=== PATIENT | female | born 1970 | race Caucasian/White ===

== ENCOUNTER 2017-03-04 17:36 | Emergency (ER) | payer MEDICAID, OTHER ==
[~2017-03-04] VITALS: Wt 75.3 kg
[2017-03-04] MEDS ORDERED: ONDANSETRON (ODT) 4 MG TAB ODT STA (19:48)
[2017-03-04] MEDS ORDERED: CLIN-73 PO (19:50)
[2017-03-04] MEDS ORDERED: IBUP-1542 PO (19:50)
[2017-03-04] MEDS ORDERED: HYDROCODONE/APAP (5/325) TAB PO ONE (20:00)
[2017-03-04] MEDS ORDERED: CLINDAMYCIN 300 MG CAP PO ONE (20:00)
[2017-03-04 20:11] VITALS: BP 166/94; PULSE 100; RESP 20; TEMP 99.5
--- NOTE | 2017-03-06 22:46 | ERD ---
ER Documentation Chief Complaint Chief Complaint RIGHT HAND SWELLING/REDNESS X3 DAYS, NO INJURY HPI The patient is a 46-year-old female, presenting to the ER because of acute right hand redness and swelling for the last 2-3 days, denies any trauma, denies fever, chills, neck pain, chest pain, dyspnea. She does not smoke nor drink Medical history: Hypertension Surgical history: None ROS All systems reviewed and are negative except as per history of present illness. Medications Home Meds Active Scripts Ibuprofen* (Motrin*) 600 Mg Tab, 600 MG PO Q6, #30 TAB Prov:GARTH ABBOTT MD 03/04/17 Clindamycin Hcl* (Clindamycin Hcl*) 300 Mg Capsule, 300 MG PO QID for 10 Days, CAP Prov:GARTH ABBOTT MD 03/04/17 Allergies Allergies: Coded Allergies: No Known Allergies (Verified Allergy, Unknown, 07/15/06) PMhx/Soc History of Surgery: No Hx Respiratory Disorders: Yes (asthma) Hx Miscellaneous Medical Probl: Yes (dm2) Hx Alcohol Use: No Hx Substance Use: No Hx Tobacco Use: No Smoking Status: Never smoker Physical Exam Vitals Vital Signs Date Time Temp Pulse Resp B/P Pulse Ox O2 Delivery O2 Flow Rate FiO2 03/04/17 20:11 99.5 100 20 166/94 100 Room Air 03/04/17 17:38 98.2 106 18 173/101 97 Physical Exam Const: No acute distress. Head: Atraumatic. Eyes: Normal Conjunctiva. ENT: Normal External Ears, Nose and Mouth. Neck: Full range of motion. No meningismus. Resp: Clear to auscultation bilaterally. Cardio: Regular rate and rhythm. Abd: Soft, non distended, normal bowel sounds, non tender. Skin: No petechiae or rashes. Back: No midline or flank tenderness. Ext: Rt hand is minimally edematous and erythematous dorsally, no vesicle, no petechia, no pustule Neur: Awake and alert. No focal deficit Psych: Normal Mood and Affect. Results 24 hrs Current Medications Medications (Trade) Dose Ordered Sig/Cipriano Route PRN Reason Start Time Stop Time Status Last Admin Dose Admin Clindamycin HCl (Cleocin) 300 mg ONCE ONCE PO 03/04/17 20:00 03/04/17 20:01 DC 03/04/17 20:04 Acetaminophen/ Hydrocodone Bitart (Ambridge (5/325)) 1 tab ONCE ONCE PO 03/04/17 20:00 03/04/17 20:01 DC 03/04/17 19:56 Ondansetron HCl (Zofran Odt) 4 mg ONCE STAT ODT 03/04/17 19:48 03/04/17 19:50 DC 03/04/17 19:56 Procedures/MDM MDM: The patient is a 46-year-old female, presenting with acute right hand cellulitis. She was treated with clindamycin 300 mg po, is stable for outpatient follow-up The differential diagnoses considered include but are not limited to DVT, lymphedema, local allergic reaction Departure Diagnosis: Primary Impression: Cellulitis of hand, right Condition: Good Patient Instructions: Cellulitis Referrals: [facility] YOU HAVE RECEIVED A MEDICAL SCREENING EXAM AND THE RESULTS INDICATE THAT YOU DO NOT HAVE A CONDITION THAT REQUIRES URGENT TREATMENT IN THE EMERGENCY DEPARTMENT. FURTHER EVALUATION AND TREATMENT OF YOUR CONDITION CAN WAIT UNTIL YOU ARE SEEN IN YOUR DOCTORS OFFICE WITHIN THE NEXT 1-2 DAYS. IT IS YOUR RESPONSIBILITY TO MAKE AN APPOINTMENT FOR [facility] CARE. IF YOU HAVE A PRIMARY DOCTOR --you should call your primary doctor and schedule an appointment IF YOU DO NOT HAVE A PRIMARY DOCTOR YOU CAN CALL OUR PHYSICIAN REFERRAL HOTLINE AT IF YOU CAN NOT AFFORD TO SEE A PHYSICIAN YOU CAN CHOSE FROM THE FOLLOWING [facility] [address] [facility]. [facility] [address] [facility]. [facility] [address] [facility] [facility] [address] [facility] [facility] [address] [facility]. [facility]. [address] [facility]. [facility] YOU HAVE RECEIVED A MEDICAL SCREENING EXAM AND THE RESULTS INDICATE THAT YOU DO NOT HAVE A CONDITION THAT REQUIRES URGENT TREATMENT IN THE EMERGENCY DEPARTMENT. FURTHER EVALUATION AND TREATMENT OF YOUR CONDITION CAN WAIT UNTIL YOU ARE SEEN IN YOUR DOCTORS OFFICE WITHIN THE NEXT 1-2 DAYS. IT IS YOUR RESPONSIBILITY TO MAKE AN APPOINTMENT FOR [facility]OLOW-UP CARE. IF YOU HAVE A PRIMARY DOCTOR --you should call your primary doctor and schedule and appointment IF YOU DO NOT HAVE A PRIMARY DOCTOR YOU CAN CALL OUR PHYSICIAN REFERRAL HOTLINE AT . IF YOU CAN NOT AFFORD TO SEE A PHYSICIAN YOU CAN CHOSE FROM THE FOLLOWING [facility] INSTITUTIONS: [facility] [address] [place] [address] [facility] [address] [place] [address] [facility] + [facility] [address] [place] [address] Additional Instructions: Call your primary care doctor TOMORROW for an appointment during the next 1-2 days OR return to ER .See the doctor sooner or return here if your condition worsens before your appointment time. She was discharged with clindamycin GARTH ABBOTT MD Mar 06, 2017 22:46
== END 2017-03-04 20:25 | disposition home or self-care (01) ==
LOC: FTE 17:36
DX: L03.113 Cellulitis of right upper limb (principal); E11.9 Type 2 diabetes mellitus without complications; J45.909 Unspecified asthma, uncomplicated; I10 Essential (primary) hypertension
CPT/HCPCS: Z7502; Z7610; 99283

== ENCOUNTER 2017-03-06 18:16 | Inpatient (IN) | payer MEDICAID ==
[~2017-03-06] VITALS: Ht 162.6 cm; Wt 76.7 kg
[~2017-03-06 18:16] MED LIST: CLIN-73 PO; IBUP-1542 PO
[2017-03-06 18:42] VITALS: Ht 162.6 cm; Wt 76.7 kg
[2017-03-06] MEDS ORDERED: CLINDAMYCIN 900 MG/D5W (PMX) 50 ML IVPB STA (19:20)
[2017-03-06] MEDS ORDERED: VANCOMYCIN 1 GM (PMX) 250 ML IVPB STA (19:20)
[2017-03-06] MEDS ORDERED: PIPER-TAZO 3.375 GM IV (PMX) 50 ML IVPB STA (19:20)
[2017-03-06] MEDS ORDERED: SODIUM CHLORIDE 0.9% 1L BAG IV* STA (19:20)
[2017-03-06 20:06] LABS: ABNORMAL IP MESSAGE 1; MEAN PLATELET VOLUME 11.7 fl (7.4-10.4)
[2017-03-06 20:17] LABS: HEMATOCRIT 33.5 % (37.0-47.0); HEMOGLOBIN 12.2 g/dl (12.0-16.0); MEAN CORPUSCULAR HEMOGLOBIN 31.2 pg (29.0-33.0); MEAN CORPUSCULAR HGB CONC 36.4 g/dl (32.0-37.0); MEAN CORPUSCULAR VOLUME 85.7 fl (82.0-101.0); PLATELET COUNT 273 10^3/UL (140-415); RED BLOOD COUNT 3.91 10^6/ul (4.20-5.40); RED CELL DISTRIBUTION WIDTH 12.9 % (11.5-14.5); WHITE BLOOD COUNT 28.6 10^3/ul (4.8-10.8)
[2017-03-06 20:18] LABS: POSITIVE DIFF @See below
[2017-03-06 20:30] LABS: ALBUMIN 3.4 g/dl (3.3-4.9); ALBUMIN/GLOBULIN RATIO 1.09; BILIRUBIN,INDIRECT 0.1 mg/dl (0-1.1); BILIRUBIN,TOTAL 0.1 mg/dl (0.2-1.3); CALCIUM 9.2 mg/dl (8.4-10.2); CREATININE 1.6 mg/dl (0.44-1.00); POTASSIUM 3.4 mmol/L (3.5-5.1); TOTAL PROTEIN 6.5 g/dl (6.1-8.1)
[2017-03-06 21:17] LABS: MONOCYTES % (M) 3 % (0-11); PLATELET ESTIMATE NORMAL
[2017-03-06] MEDS ORDERED: morphine 4 MG/ML VIAL IV STA (21:52)
--- NOTE | 2017-03-06 21:52 | ERD ---
ER Documentation Chief Complaint Chief Complaint R hand swelling x 5 days, redness, pt denies injury, pt was here last Mon HPI 46-year-old female with a history of hypertension presenting to the ER complaining of right upper extremity swelling, pain, and redness. Her symptoms started 4 days ago. She came to the ER 2 days ago and at that time she states she had mild swelling of the dorsal aspect of her hand. At that time she was prescribed clindamycin, but went to her primary care doctor's office the next morning prior to filling her medications and states that they took this prescription away from her and gave her prednisone instead. She never took the antibiotics as prescribed. Her symptoms got significantly worse since then. The redness is now more severe and spreading up her arm. She denies any associated fever, chills. She feels some tingling in her hand. Her pain is a 7 out of 10, radiating up her arm. No other associated symptoms. ROS All systems reviewed and are negative except as per history of present illness. Medications Home Meds Active Scripts Ibuprofen* (Motrin*) 600 Mg Tab, 600 MG PO Q6, #30 TAB Prov:GARTH ABBOTT MD 03/04/17 Clindamycin Hcl* (Clindamycin Hcl*) 300 Mg Capsule, 300 MG PO QID for 10 Days, CAP Prov:GARTH ABBOTT MD 03/04/17 Allergies Allergies: Coded Allergies: No Known Allergies (Verified Allergy, Unknown, 07/15/06) PMhx/Soc History of Surgery: No Hx Respiratory Disorders: Yes (asthma) Hx Cardiac Disorders: Yes (Hypertension) Hx Miscellaneous Medical Probl: Yes (dm2) Hx Alcohol Use: No Hx Substance Use: No Hx Tobacco Use: No Smoking Status: Never smoker FmHx Family History: No diabetes Physical Exam Vitals Vital Signs Date Time Temp Pulse Resp B/P Pulse Ox O2 Delivery O2 Flow Rate FiO2 03/06/17 21:39 97.7 71 20 140/86 99 Room Air 03/06/17 18:42 98.5 115 20 146/96 98 Physical Exam Const: Well-appearing, nontoxic, no apparent distress Head: Atraumatic Eyes: Normal Conjunctiva ENT: Normal External Ears, Nose and Mouth. Neck: Full range of motion..~ No meningismus. Resp: Clear to auscultation bilaterally Cardio: Tachycardic with regular rhythm, no murmurs Abd: Soft, non tender, non distended. Normal bowel sounds Skin: No petechiae or rashes. See extremity exam Back: No midline or flank tenderness Ext: Right upper extremity with significant erythema of the hand with associated swelling. The erythema extends up to her mid forearm with lymphangitis up her entire arm. significantly tender to palpation without crepitus. No necrotic areas. 1+ pitting edema. 2+ radial pulse. Cap refill less than 2 seconds. All other extremities normal. Neur: Awake and alert Psych: Normal Mood and Affect Result Diagram: 03/06/17192903/06/171929 Results 24 hrs Laboratory Tests Test 03/06/17 19:30 03/06/17 22:07 White Blood Count 28.610^3/ul Red Blood Count 3.9110^6/ul Hemoglobin 12.2g/dl Hematocrit 33.5% Mean Corpuscular Volume 85.7fl Mean Corpuscular Hemoglobin 31.2pg Mean Corpuscular Hemoglobin Concent 36.4g/dl Red Cell Distribution Width 12.9% Platelet Count 17807^3/UL Mean Platelet Volume 11.7fl Neutrophils % % Segmented Neutrophils % (Manual) 86% Band Neutrophils % (Manual) 11% Monocytes % (Manual) 3% Eosinophils % % Nucleated Red Blood Cells % 0.0/100WBC Neutrophils # 10^3/ul Neutrophils # (Manual) 25.510^3/ul Band Neutrophils # 3.110^3/ul Absolute Monocytes (Manual) 0.810^3/ul Eosinophils # 10^3/ul Platelet Estimate NORMAL Sodium Level 137mmol/L Potassium Level 3.4mmol/L Chloride Level 101mmol/L Carbon Dioxide Level 22mmol/L Anion Gap 17 Blood Urea Nitrogen 27mg/dl Creatinine 1.60mg/dl Glucose Level 163mg/dl Lactic Acid Level 1.1mmol/L 1.1mmol/L Calcium Level 9.2mg/dl Total Bilirubin 0.1mg/dl Direct Bilirubin 0.00mg/dl Indirect Bilirubin 0.1mg/dl Aspartate Amino Transf (AST/SGOT) 29IU/L Alanine Aminotransferase (ALT/SGPT) 32IU/L Alkaline Phosphatase 138IU/L Total Protein 6.5g/dl Albumin 3.4g/dl Globulin 3.10g/dl Albumin/Globulin Ratio 1.09 Current Medications Medications (Trade) Dose Ordered Sig/Cipriano Route PRN Reason Start Time Stop Time Status Last Admin Dose Admin Sodium Chloride 2380 ml 2,380 ml BOLUS OVER 2 HOURS STAT IV* 03/06/17 19:20 03/06/17 19:22 DC 03/06/17 19:54 Vancomycin HCl 250 ml @ 125 mls/hr ONCE STAT IVPB 03/06/17 19:20 03/06/17 21:19 DC 03/06/17 21:37 Clindamycin HCl/ Dextrose 50 ml @ 50 mls/hr ONCE STAT IVPB 03/06/17 19:20 03/06/17 20:19 DC 03/06/17 20:37 Piperacillin Sod/ Tazobactam Sod (Zosyn 3.375gm/ 50 ml (Pmx)) 50 ml @ 100 mls/hr ONCE STAT IVPB 03/06/17 19:20 03/06/17 19:49 DC 03/06/17 19:54 Ondansetron HCl (Zofran Inj) 4 mg BRIDGE ORDER PRN IV NAUSEA AND/OR VOMITING 03/06/17 22:00 03/07/17 21:59 Acetaminophen (Tylenol Tab) 650 mg ER BRIDGE PRN PO MILD PAIN/FEVER 03/06/17 22:00 03/07/17 21:59 Morphine Sulfate (morphine) 4 mg ONCE STAT IV 03/06/17 21:52 03/06/17 21:53 DC Procedures/MDM Labs interpreted by me: CBC shows leukocytosis with white blood cell count of 28 BMP shows elevated BUN and creatinine, consistent with acute renal failure Lactate is within normal limits Blood culture pending MDM She is presenting with worsening cellulitis of her right upper extremity. She is not febrile but she was tachycardic when she arrived. She did meet sepsis criteria with her leukocytosis. However there is no evidence of severe sepsis or septic shock. She was given vancomycin, Zosyn, and clindamycin. Her LRINEC score is low at 3. The low suspicion for necrotizing soft tissue infection. Patient's infectious symptoms have not stabilized and the patient is at risk of rapid decompensation. The patient will be admitted for careful hydration, antibiotic therapy, and infectious source control. Severe Sepsis Assessment: Infectious Source: Cellulitis Severe Sepsis Management: Blood Cultures X 2 before broad spectrum antibiotics initiated within 3 hours of recognition. 30 ml/kg NS bolus Completed Initial Lactate: normal Repeat Lactate not indicated as initial < 2.0 Critical Care: Time: 35 minutes Treatments/Evaluations: Emergent fluid management, while maintaining close respiratory support. Immediate broad spectrum antibiotic therapy. Simultaneous assessment for possible sources in order to direct therapy. Consideration for invasive and chemical support to prevent respiratory or cardiac collapse. Septic Shock Assessment (1 hour post 30 ml/kg fluid bolus): Hypotension (SBP < 90 or 40 mmHg drop, MAP < 65): No Lactic acid > 4.0 No Accepting Care Team: Current data and ongoing care discussed. Time: Time of admission Primary Provider: XOXOXO Consulting: XOXOXO Outstanding Data: none Departure Diagnosis: Primary Impression: Cellulitis of right upper extremity Additional Impressions: Sepsis Sepsis type: sepsis due to unspecified organism Qualified Code: A41.9 - Sepsis, due to unspecified organism Acute renal insufficiency RICH ARNOLD MD Mar 06, 2017 21:52
[2017-03-06] MEDS ORDERED: ONDANSETRON 4 MG INJ IV PRN (22:00)
[2017-03-06] MEDS ORDERED: ACETAMINOPHEN 325 MG TAB PO PRN (22:00)
[2017-03-06 23:42] VITALS: TEMP 97.6
[2017-03-07] MEDS ORDERED: CLON-379 PO (01:02)
[2017-03-07] MEDS ORDERED: OMEP20CA16 PO (01:02)
[2017-03-07] MEDS ORDERED: HYDR25TA6 PO (01:02)
[2017-03-07] MEDS ORDERED: PRED20TA PO (01:02)
[2017-03-07] MEDS ORDERED: morphine 2 MG INJ IV PRN (01:30)
[2017-03-07] MEDS ORDERED: VANCOMYCIN IV PER PHARMACY XX SCH (01:30)
[2017-03-07] MEDS ORDERED: ONDANSETRON 4 MG INJ IV PRN (01:30)
[2017-03-07 08:00] VITALS: BP 148/84; RESP 18
--- NOTE | 2017-03-07 08:55 | HP ---
Date/Time of Note Date/Time of Note DATE: 03/07/17 TIME: 08:48 Assessment/Plan VTE Prophylaxis VTE Prophylaxis Intervention: heparin Lines/Catheters IV [facility]ter Type [facility]from [facility] Saline Lock Urinary Cath still in place: No Assessment/Plan Assessment/Plan 1. Sepsis, as evidenced by leukocytosis and tachycardia, secondary to right hand/forearm cellulitis -Patient's hand is swollen and is tender. There is a strong radial pulse and sensations are intact at her fingertips. -Plan is for broad-spectrum IV antibiotics, and obtain venous study to evaluate for thrombosis -pain management 2. Presumed SHAWANDA -We will treat with IV fluid for now -Nephrology consult and renal ultrasound as needed 3. History of hypertension: Blood pressure was in acceptable range -Continue antihypertensives adjustment as needed 4. History of migraine headache - Will provide pain medication as needed HPI/ROS Admit Date/Time Admit Date/Time Mar 06, 2017 at 21:51 Hx of Present Illness This is a 46-year-old female with a history of hypertension, migraine headache and back pain who presented to the ER complaining of right hand and forearm swelling, redness and pain X few days. Patient does not know what caused this problem. She denied trauma or any piercing injury. She was supposed to be taking antibiotic but for some reason the patient has not been taking it. When she presented to the ER, lab shows a WBC of 20,000, potassium 3.4, creatinine 1.6, BUN 27. She was initially tachycardic with a heart rate of 115 , which improved to 70s. PMH/Family/Social Social History Smoking Status: Never smoker Exam/Review of Systems Vital Signs Vitals Vital Signs Date Time Temp Pulse Resp B/P Pulse Ox O2 Delivery O2 Flow Rate FiO2 03/06/17 23:42 97.6 84 122/74 03/06/17 23:41 18 98 Room Air Exam Constitutional: alert, oriented, other (Sleepy but arousable) Head: atraumatic, normocephalic Eyes: EOMI, PERRL Respiratory: clear to auscultation, normal air movement Cardiovascular: nl pulses, regular rate and rhythm Gastrointestinal: non-tender, soft Extremities: other (Right hand swelling, erythema and tenderness) Labs Result Diagram: 03/06/17192903/06/171929 Medications Medications Current Medications Cefepime HCl (Maxipime 1gm/50 ml (Pmx)) 50 ml @ 100 mls/hr Q12 IVPB ; Start at 09:00 Morphine Sulfate (morphine) 2 mg Q4H PRN IV pain; Start 03/07/17 at 01:30 Ondansetron HCl 4 mg 4 mg Q6H PRN IV NAUSEA AND/OR VOMITING; Start 03/07/17 at 01:30 Vancomycin HCl (Vancocin) 250 ml @ 125 mls/hr Q24H IVPB ; Start 03/07/17 at 10: 00 JOSH HAIDER MD Mar 07, 2017 08:55
[2017-03-07] MEDS: CEFEPIME 1GM/50 ML (PMX) 50 ML IVPB SCH ×2 (09:26→22:08)
[2017-03-07] MEDS: HEPARIN 5,000 UNIT/0.5 ML VIAL SC SCH ×2 (09:27→20:58)
[2017-03-07] MEDS ORDERED: VANCOMYCIN 1 GM in NS 250 ML IVPB SCH (10:00)
[2017-03-07 10:04] LABS: ABNORMAL IP MESSAGE 1; MEAN CORPUSCULAR HEMOGLOBIN 30.6 pg (29.0-33.0); MEAN CORPUSCULAR HGB CONC 35.5 g/dl (32.0-37.0); MEAN CORPUSCULAR VOLUME 86.1 fl (82.0-101.0); MEAN PLATELET VOLUME 11.3 fl (7.4-10.4); PLATELET COUNT 280 10^3/UL (140-415); WHITE BLOOD COUNT 26.2 10^3/ul (4.8-10.8)
[2017-03-07 10:12] LABS: CALCIUM 8.9 mg/dl (8.4-10.2); CREATININE 1.22 mg/dl (0.44-1.00); MAGNESIUM 1.2 mg/dl (1.7-2.5); PHOSPHORUS 3.8 mg/dl (2.5-4.9)
[2017-03-07 10:20] LABS: POSITIVE DIFF @See below
[2017-03-07 10:34] LABS: POTASSIUM 2.8 mmol/L (3.5-5.1)
--- NOTE | 2017-03-07 11:03 | RADRPT ---
PROCEDURE: Upper extremity venous duplex CLINICAL INDICATION: Pain and swelling TECHNIQUE: Axial longitudinal color-flow and cuenca scale images were obtained of deep venous system of the upper extremities. Graded compression and augmentation were performed. COMPARISON: None FINDINGS: There is normal color flow and compressibility right internal jugular veins, subclavian veins, axill aries veins, brachial veins, basilic veins, and cephalic veins. Normal augmentation and respiratory variation is identified. IMPRESSION: No evidence of right upper extremity deep venous thrombosis RPTAT: HH .Trae Feldman MD, MD Date Time Electronically viewed and signed by .Trae Feldman MD, MD on 03/07/2017 11:03 .W/
--- NOTE | 2017-03-07 11:28 | RADRPT ---
PROCEDURE: XR Hand. CLINICAL INDICATION: Right hand pain and swelling. TECHNIQUE: Three views. Frontal, lateral, and oblique images of the right hand were obtained. COMPARISON: No prior studies are available for comparison. FINDINGS: There is no fracture or dislocation. There is diffuse soft tissue swelling overlying the metacarpals. Articular surfaces are intact. There is no lytic or blastic lesion. There is no radiopaque foreign body. IMPRESSION: 1. Diffuse soft tissue swelling overlying the metacarpals. 2. Otherwise unremarkable images of the right hand. RPTAT: QQ .Ebenezer Britton MD, MD Date Time Electronically viewed and signed by .Ebenezer Britton MD, on 03/07/2017 11:28 .R/
[2017-03-07] MEDS ORDERED: POTASSIUM CHLORIDE (SR) 20 MEQ TAB PO STA (12:35)
[2017-03-07 12:50] LABS: ANISOCYTOSIS 1+ (0-0); MICROCYTOSIS 1+ (0-0); MONOCYTES % (M) 4 % (0-11); PLATELET ESTIMATE NORMAL
[2017-03-07] MEDS ORDERED: MAGNESIUM SULFATE 2 GM/50 ML 50 ML IVPB ONE (13:00)
[2017-03-07] MEDS ORDERED: POTASSIUM CHLORIDE 250 ML IVPB ONE (13:00)
--- NOTE | 2017-03-07 13:51 | CONS ---
Date/Time of Note Date/Time of Note DATE: 03/07/17 TIME: 13:51 Assessment/Plan Assessment/Plan Additional Assessment/Plan 46 yo female with 1. Sepsis, as evidenced by leukocytosis and tachycardia, secondary to right hand/forearm cellulitis 2. Presumed SHAWANDA on CKD Improved, Non Oliguric 3. Chronic hypertension: Controlled 4. History of migraine headache 5. Hypokalemia Cont current Rx and plan K supplementation, Check Mg Renal function has already improved Cr 1.6->1.2 Will cont to closely follow along with you. Avoid nephrotoxic Rx whenever possible Hold MAURO-i, ARB at this time Thank you for the opportunity to participate in the care of Ms Funez. Consultation Date/Type/Reason Admit Date/Time Mar 06, 2017 at 21:51 Date of Consultation: Mar 07, 2017 Type of Consultation: Renal Reason for Consultation SHAWANDA Referring Provider: SHYAM ROBERTS Hx of Present Illness 46-year-old female with a history of hypertension, migraine headache and back pain who presented to the ER complaining of right hand and forearm swelling, redness and pain X few days. Pt has been on IV abx in Hx. Had acute rise in cr to 1.6 during this admission with improvement to 1.2. Also with hyperkalemia, currently on supplement. pt has hx of CKD and has seen instructional support specialist in the past. Nephrology consulted for SHAWANDA on CKD. Pt is non oliguric. Past Medical History Medical History: hypertension, renal disease Past Surgical History Past Surgical Hx: other Family History Significant Family History: no pertinent family hx Social History Alcohol Use: none Smoking Status: Never smoker Drug Use: none Exam/Review of Systems Vital Signs Vitals Vital Signs Date Time Temp Pulse Resp B/P Pulse Ox O2 Delivery O2 Flow Rate FiO2 03/07/17 08:00 98.6 84 18 148/84 96 03/06/17 23:41 Room Air Exam Constitutional: alert, oriented, No distress Psych: No anxiety Head: atraumatic Eyes: EOMI ENMT: mucosa pink and moist Neck: No jvd Respiratory: clear to auscultation, diminished breath sounds, No labored breathing Cardiovascular: edema (RUE), regular rate and rhythm Gastrointestinal: non-tender, soft, No distended, No rebound or guarding Extremities: edema (RUE) Neurological: AGRI BUSINESS AGENT II-XII intact, nl mental status, No lethargic Skin: No diaphoresis Results Result Diagram: 03/07/1792003/07/17920 Results 24 hrs Laboratory Tests Test 03/06/17 19:30 03/06/17 22:07 03/06/17 23:49 03/07/17 09:21 White Blood Count 28.6 H 26.2 H Red Blood Count 3.91 L 3.60 L Hemoglobin 12.2 11.0 L Hematocrit 33.5 L 31.0 L Mean Corpuscular Volume 85.7 86.1 Mean Corpuscular Hemoglobin 31.2 30.6 Mean Corpuscular Hemoglobin Concent 36.4 35.5 Red Cell Distribution Width 12.9 13.0 Platelet Count 273 280 Mean Platelet Volume 11.7 H 11.3 H Neutrophils % Segmented Neutrophils % (Manual) 86 H 73 Band Neutrophils % (Manual) 11 H 17 H Monocytes % (Manual) 3 4 Eosinophils % Nucleated Red Blood Cells % 0.0 0.0 Neutrophils # Neutrophils # (Manual) 25.5 H 20.3 H Band Neutrophils # 3.1 H 4.4 H Absolute Monocytes (Manual) 0.8 1.0 H Eosinophils # Platelet Estimate NORMAL NORMAL Sodium Level 137 141 Potassium Level 3.4 L 2.8 *L Chloride Level 101 106 Carbon Dioxide Level 22 24 Anion Gap 17 H 14 Blood Urea Nitrogen 27 H 20 Creatinine 1.60 H 1.22 H Glucose Level 163 177 Lactic Acid Level 1.1 1.1 0.9 Calcium Level 9.2 8.9 Total Bilirubin 0.1 L Direct Bilirubin 0.00 Indirect Bilirubin 0.1 Aspartate Amino Transf (AST/SGOT) 29 Alanine Aminotransferase (ALT/SGPT) 32 Alkaline Phosphatase 138 H Total Protein 6.5 Albumin 3.4 Globulin 3.10 Albumin/Globulin Ratio 1.09 Lymphocytes % Lymphocytes % (Manual) 6 L Monocytes % Basophils % Absolute Lymphocytes (Manual) 1.5 Lymphocytes # Monocytes # Basophils # Nucleated Red Blood Cells # Anisocytosis 1+ Microcytosis 1+ Phosphorus Level 3.8 Magnesium Level 1.2 L Medications Medications Current Medications Cefepime HCl (Maxipime 1gm/50 ml (Pmx)) 50 ml @ 100 mls/hr Q12 IVPB Last administered on 03/07/17t 09:26; Admin Dose 100 MLS/HR; Start 03/07/17 at 09:00 Morphine Sulfate (morphine) 2 mg Q4H PRN IV pain; Start 03/07/17 at 01:30 Ondansetron HCl (Zofran Inj) 4 mg Q6H PRN IV NAUSEA AND/OR VOMITING; Start 03/07/17 at 01:30 Heparin Sodium (Porcine) 5000 unit 5,000 unit BID SC Last administered on t 09:27; Admin Dose 5,000 UNIT; Start 03/07/17 at 09:00 Magnesium Sulfate 50 ml @ 25 mls/hr ONCE ONCE IVPB ; Start 03/07/17 at 13:00; Stop 03/07/17 at 14:59 Potassium Chloride 250 ml @ 62.5 mls/hr ONCE ONCE IVPB ; Start 03/07/17 at 13: 00; Stop 03/07/17 at 16:59 Vancomycin HCl/ Dextrose/Water (Vancocin/D5W) 150 ml @ 75 mls/hr Q12H IVPB ; Start 03/07/17 at 22:30 BEN TIJERINA MD Mar 07, 2017 13:51
[2017-03-07 14:00] VITALS: BP 135/86; RESP 20
[2017-03-07 16:40] LABS: ADD UMIC YES; UR ASCORBIC ACID NEGATIVE (NEGATIVE); UR BILIRUBIN (Dip) NEGATIVE (NEGATIVE); UR BLOOD (Dip) NEGATIVE (NEGATIVE); UR CLARITY CLEAR (CLEAR); UR COLOR STRAW (YELLOW); UR GLUCOSE (Dip) NEGATIVE (NEGATIVE); UR KETONES (Dip) NEGATIVE (NEGATIVE); UR LEUKOCYTE ESTERASE (Dip) NEGATIVE Leu/ul (NEGATIVE); UR NITRITE (Dip) NEGATIVE (NEGATIVE); UR RBC 1 /HPF (0-5); UR SPECIFIC GRAVITY (Dip) 1.014 (1.003-1.030); UR SQUAMOUS EPITHELIAL CELL FEW /HPF (FEW); UR TOTAL PROTEIN (Dip) 1+ mg/dl (NEGATIVE); UR UROBILINOGEN (Dip) NEGATIVE (NEGATIVE)
[2017-03-07 20:00] VITALS: BP 168/105; RESP 18
[2017-03-07] MEDS ORDERED: hydrALAzine 20 MG INJ IV PRN (22:00)
[2017-03-07] MEDS: VANCOMYCIN 750 MG in DEXTROSE 5% 150 ML IVPB SCH (22:08)
[2017-03-07 23:30] VITALS: BP 168/105
[2017-03-08] VITALS (7 sets, daily range): BP systolic 135–163; BP diastolic 69–110; PULSE 75; RESP 18–20
[2017-03-08] MEDS: PANTOPRAZOLE (EC) 40 MG TAB PO SCH (05:14)
[2017-03-08] MEDS: IBUPROFEN 600 MG TAB PO SCH ×4 (05:14→17:25)
[2017-03-08 06:30] LABS: ABNORMAL IP MESSAGE 1; HEMATOCRIT 34.4 % (37.0-47.0); HEMOGLOBIN 11.9 g/dl (12.0-16.0); MEAN CORPUSCULAR HEMOGLOBIN 30.2 pg (29.0-33.0); MEAN CORPUSCULAR HGB CONC 34.6 g/dl (32.0-37.0); MEAN CORPUSCULAR VOLUME 87.3 fl (82.0-101.0); MEAN PLATELET VOLUME 11.4 fl (7.4-10.4); PLATELET COUNT 332 10^3/UL (140-415); RED BLOOD COUNT 3.94 10^6/ul (4.20-5.40); RED CELL DISTRIBUTION WIDTH 13.2 % (11.5-14.5)
[2017-03-08 06:43] LABS: POTASSIUM 3.5 mmol/L (3.5-5.1)
[2017-03-08 07:16] LABS: POSITIVE DIFF @See below
[2017-03-08 07:57] LABS: THYROID STIMULATING HORMONE 1.93 MIU/L (0.465-4.680)
[2017-03-08] MEDS ORDERED: predniSONE 20 MG TAB PO SCH (09:00)
[2017-03-08] MEDS: HYDROCHLOROTHIAZIDE 25 MG TAB PO SCH (09:13)
[2017-03-08] MEDS: CEFEPIME 1GM/50 ML (PMX) 50 ML IVPB SCH ×2 (09:13→21:56)
[2017-03-08] MEDS: HEPARIN 5,000 UNIT/0.5 ML VIAL SC SCH ×2 (09:17→21:58)
[2017-03-08 10:16] LABS: ANISOCYTOSIS 1+ (0-0); BASOPHILS % (M) 1 % (0-2); METAMYELOCYTES %M 1 % (0-0); MICROCYTOSIS 1+ (0-0); MONOCYTES % (M) 6 % (0-11); PLATELET ESTIMATE NORMAL; POLYCHROMASIA 3+ (0-0); REACTIVE LYMPHOCYTES% (M) 1 % (0-0)
--- NOTE | 2017-03-08 10:17 | PN ---
Date/Time of Note Date/Time of Note DATE: 03/08/17 TIME: 10:14 Assessment/Plan VTE Prophylaxis VTE Prophylaxis Intervention: ambulation, SCD's Lines/Catheters IV Catheter Type (from Nrs): Saline Lock Urinary Cath still in place: No Assessment/Plan Assessment/Plan 1. Sepsis, as evidenced by leukocytosis and tachycardia, secondary to right hand/forearm cellulitis Patient is improving. White count is trending down. She is however not ready for discharge at this time, continue in-house broad-spectrum antibiotics. 2. Presumed SHAWANDA Creatinine levels have improved. Continue IV fluids. Will get renal ultrasound this patient has history of high blood pressure. 3. Hypertension: Still with suboptimal control, adjust antihypertensives. 4. History of migraine headache - Will provide pain medication as needed Further interventions per clinical care. Appreciate all consults. Subjective 24 Hr Interval Summary Free Text/Dictation Patient seems much better, and is actually desirous of discharge. Having a lot of itching in her right hand and forearm. Exam/Review of Systems Vital Signs Vitals Vital Signs Date Time Temp Pulse Resp B/P Pulse Ox O2 Delivery O2 Flow Rate FiO2 03/08/17 07:51 97.5 79 18 152/95 99 03/06/17 23:41 Room Air Intake and Output 03/07/17 03/07/17 03/08/17 15:00 23:00 07:00 Intake Total 300 ml 1500 ml 800 ml Output Total 2 ml Balance 300 ml 1500 ml 798 ml Exam Constitutional: alert, oriented, No distress Psych: No anxiety Head: normocephalic Eyes: PERRL ENMT: mucosa pink and moist Respiratory: clear to auscultation Cardiovascular: regular rate and rhythm, No murmurs/extra sounds Gastrointestinal: bowel sounds, non-tender, soft Extremities: other (Right hand and forearm to upper one third still swollen and erythematous. However patient reports improvement significantly from previous.) Neurological: nl mental status Results Result Diagram: 03/08/1751603/08/17516 Results 24 hrs Laboratory Tests Test 03/07/17 15:30 03/08/17 05:17 Urine Color STRAW Urine Clarity CLEAR Urine pH 6.0 Urine Specific [place] 1.014 Urine Ketones NEGATIVE Urine Nitrite NEGATIVE Urine Bilirubin NEGATIVE Urine Urobilinogen NEGATIVE Urine Leukocyte Esterase NEGATIVE Urine Microscopic RBC 1 Urine Microscopic WBC 1 Urine Squamous Epithelial Cells FEW Urine Hemoglobin NEGATIVE Urine Glucose NEGATIVE Urine Total Protein 1+ H White Blood Count 25.0 H Red Blood Count 3.94 L Hemoglobin 11.9 L Hematocrit 34.4 L Mean Corpuscular Volume 87.3 Mean Corpuscular Hemoglobin 30.2 Mean Corpuscular Hemoglobin Concent 34.6 Red Cell Distribution Width 13.2 Platelet Count 332 Mean Platelet Volume 11.4 H Neutrophils % Lymphocytes % Monocytes % Eosinophils % Basophils % Nucleated Red Blood Cells % 0.0 Neutrophils # Lymphocytes # Monocytes # Eosinophils # Basophils # Nucleated Red Blood Cells # Sodium Level 140 Potassium Level 3.5 Chloride Level 104 Carbon Dioxide Level 26 Anion Gap 14 Blood Urea Nitrogen 20 Creatinine 1.00 Glucose Level 105 # Hemoglobin A1c 5.4 Calcium Level 9.0 Magnesium Level 2.0 Thyroid Stimulating Hormone (TSH) 1.930 Medications Medications Current Medications Cefepime HCl (Maxipime 1gm/50 ml (Pmx)) 50 ml @ 100 mls/hr Q12 IVPB Last administered on 03/08/17 09:13; Admin Dose 100 MLS/HR; Start 03/07/17 at 09:00 Morphine Sulfate (morphine) 2 mg Q4H PRN IV pain; Start 03/07/17 at 01:30 Ondansetron HCl (Zofran Inj) 4 mg Q6H PRN IV NAUSEA AND/OR VOMITING; Start 03/07/17 at 01:30 Heparin Sodium (Porcine) 5000 unit 5,000 unit BID SC Last administered on 09:17; Admin Dose 5,000 UNIT; Start 03/07/17 at 09:00 Vancomycin HCl/ Dextrose/Water (Vancocin/D5W) 150 ml @ 75 mls/hr Q12H IVPB Last administered on 03/07/17 22:08; Admin Dose 75 MLS/HR; Start 03/07/17 at 22 :30 Clonidine (Catapres) 0.1 mg Q6H PRN PO for sbp >160; Start 03/07/17 at 22:00 Hydralazine HCl (Apresoline) 10 mg Q4H PRN IV sbp >160 Last administered on 23:50; Admin Dose 10 MG; Start 03/07/17 at 22:00 Hydrochlorothiazide (Hydrochlorothiazide) 25 mg DAILY PO Last administered on 03/08/17 09:13; Admin Dose 25 MG; Start 03/08/17 at 09:00 Ibuprofen (Motrin) 600 mg Q6 PO Last administered on 03/08/17 05:14; Admin Dose 600 MG; Start 03/08/17 at 00:00 Prednisone (Prednisone) 20 mg BID PO Last administered on 03/08/17 09:13; Admin Dose 20 MG; Start 03/08/17 at 09:00 Pantoprazole (Protonix Tab) 40 mg DAILY@06 PO Last administered on 03/08/17 05 :14; Admin Dose 40 MG; Start 03/08/17 at 06:00 Procedures Procedures PROCEDURE: Upper extremity venous duplex CLINICAL INDICATION: Pain and swelling TECHNIQUE: Axial longitudinal color-flow and cuenca scale images were obtained of deep venous system of the upper extremities. Graded compression and augmentation were performed. COMPARISON: None FINDINGS: There is normal color flow and compressibility right internal jugular veins, subclavian veins, axillary veins, brachial veins, basilic veins, and cephalic veins. Normal augmentation and respiratory variation is identified. IMPRESSION: No evidence of right upper extremity deep venous thrombosis RPTAT: HH .Trae Feldman MD, MD Date Time Electronically viewed and signed by .Trae Feldman MD, on 03/07/2017 11:03 .W/ CC: JOSH HAIDER MD, BOLAT[place] M. Mar 08, 2017 10:17
[2017-03-08] MEDS ORDERED: HYDROCORTISONE 1% 28 GM CR TOP PRN (10:30)
[2017-03-08] MEDS: VANCOMYCIN 750 MG in DEXTROSE 5% 150 ML IVPB SCH ×2 (11:22→22:31)
[2017-03-08] MEDS: AMLODIPINE 5 MG TAB PO SCH (12:23)
--- NOTE | 2017-03-08 14:50 | CONS ---
Date/Time of Note Date/Time of Note DATE: 03/08/17 TIME: 14:49 Assessment/Plan Assessment/Plan Additional Assessment/Plan 46 yo female with 1. Sepsis, as evidenced by leukocytosis and tachycardia, secondary to right hand/forearm cellulitis 2. Presumed SHAWANDA on CKD , Non Oliguric Resolved 3. Chronic hypertension: Controlled 4. History of migraine headache 5. Hypokalemia- Resolved Cont current Rx and plan SHAWANDA Resolved BP better controlled Electrolytes Ok May resume MAURO-I upon discharge Renal Will sign off at this time Re consult as needed Thank you for the opportunity to participate in the care of Ms Funez. Consultation Date/Type/Reason Admit Date/Time Mar 08, 2017 at 11:36 Initial Consult Date 03/07/17 Type of Consultation: Renal Referring Provider: SHYAM ROBERTS 24 HR Interval Summary Free Text/Dictation No new complaints Constitutional: No requiring O2 Exam/Review of Systems Vital Signs Vitals Vital Signs Date Time Temp Pulse Resp B/P Pulse Ox O2 Delivery O2 Flow Rate FiO2 03/08/17 14:05 97.0 81 18 135/83 98 03/06/17 23:41 Room Air Intake and Output 03/07/17 03/07/17 03/08/17 15:00 23:00 07:00 Intake Total 300 ml 1500 ml 800 ml Output Total 2 ml Balance 300 ml 1500 ml 798 ml Exam Constitutional: alert, No distress ENMT: mucosa pink and moist Respiratory: No crackles/rales Cardiovascular: regular rate and rhythm Gastrointestinal: non-tender, soft Extremities: other (RUE celllulitis improving. ) Neurological: ROLLER II-XII intact, nl mental status Results Result Diagram: 03/08/1717 03/08/17 0517 Results 24 hrs Laboratory Tests Test 03/07/17 15:30 03/08/17 05:17 Urine Color STRAW Urine Clarity CLEAR Urine pH 6.0 Urine Specific [place] 1.014 Urine Ketones NEGATIVE Urine Nitrite NEGATIVE Urine Bilirubin NEGATIVE Urine Urobilinogen NEGATIVE Urine Leukocyte Esterase NEGATIVE Urine Microscopic RBC 1 Urine Microscopic WBC 1 Urine Squamous Epithelial Cells FEW Urine Hemoglobin NEGATIVE Urine Glucose NEGATIVE Urine Total Protein 1+ H White Blood Count 25.0 H Red Blood Count 3.94 L Hemoglobin 11.9 L Hematocrit 34.4 L Mean Corpuscular Volume 87.3 Mean Corpuscular Hemoglobin 30.2 Mean Corpuscular Hemoglobin Concent 34.6 Red Cell Distribution Width 13.2 Platelet Count 332 Mean Platelet Volume 11.4 H Neutrophils % Segmented Neutrophils % (Manual) 72 Band Neutrophils % (Manual) 19 H Lymphocytes % Reactive Lymphocytes % (Manual) 1 H Monocytes % Monocytes % (Manual) 6 Eosinophils % Basophils % Basophils % (Manual) 1 Metamyelocytes % (manual) 1 H Nucleated Red Blood Cells % 0.0 Neutrophils # Neutrophils # (Manual) 19.2 H Band Neutrophils # 4.7 H Lymphocytes # Reactive Lymphocytes # 0.2 H Monocytes # Absolute Monocytes (Manual) 1.5 H Eosinophils # Basophils # Basophils # (Manual) 0.2 H Metamyelocytes # 0.2 H Nucleated Red Blood Cells # Platelet Estimate NORMAL Polychromasia 3+ Anisocytosis 1+ Microcytosis 1+ Sodium Level 140 Potassium Level 3.5 Chloride Level 104 Carbon Dioxide Level 26 Anion Gap 14 Blood Urea Nitrogen 20 Creatinine 1.00 Glucose Level 105 # Hemoglobin A1c 5.4 Calcium Level 9.0 Magnesium Level 2.0 Thyroid Stimulating Hormone (TSH) 1.930 Medications Medications Current Medications Cefepime HCl (Maxipime 1gm/50 ml (Pmx)) 50 ml @ 100 mls/hr Q12 IVPB Last administered on 03/08/17 09:13; Admin Dose 100 MLS/HR; Start 03/07/17 at 09:00 Morphine Sulfate (morphine) 2 mg Q4H PRN IV pain; Start 03/07/17 at 01:30 Ondansetron HCl (Zofran Inj) 4 mg Q6H PRN IV NAUSEA AND/OR VOMITING; Start 03/07/17 at 01:30 Heparin Sodium (Porcine) 5000 unit 5,000 unit BID SC Last administered on 09:17; Admin Dose 5,000 UNIT; Start 03/07/17 at 09:00 Vancomycin HCl/ Dextrose/Water (Vancocin/D5W) 150 ml @ 75 mls/hr Q12H IVPB Last administered on 03/08/17 11:22; Admin Dose 75 MLS/HR; Start 03/07/17 at 22 :30 Clonidine (Catapres) 0.1 mg Q6H PRN PO for sbp >160; Start 03/07/17 at 22:00 Hydralazine HCl (Apresoline) 10 mg Q4H PRN IV sbp >160 Last administered on 23:50; Admin Dose 10 MG; Start 03/07/17 at 22:00 Hydrochlorothiazide (Hydrochlorothiazide) 25 mg DAILY PO Last administered on 03/08/17 09:13; Admin Dose 25 MG; Start 03/08/17 at 09:00 Ibuprofen (Motrin) 600 mg Q6 PO Last administered on 03/08/17 12:21; Admin Dose 600 MG; Start 03/08/17 at 00:00 Pantoprazole (Protonix Tab) 40 mg DAILY@06 PO Last administered on 03/08/17 05 :14; Admin Dose 40 MG; Start 03/08/17 at 06:00 Amlodipine Besylate (Norvasc) 5 mg DAILY PO Last administered on 03/08/17 12: 23; Admin Dose 5 MG; Start 03/08/17 at 11:00 Hydrocortisone (Hydrocortisone 1% Cr) 1 applic BID PRN TOP itching; Start 03/08 at 10:30 Miscellaneous Information (*Rx Drug Level Order Reminder*) 1 ONCE ONCE XX ; Start 03/08/17 at 21:30; Stop 03/08/17 at 21:31 BEN TIJERINA MD Mar 08, 2017 14:50
[2017-03-09] MEDS: IBUPROFEN 600 MG TAB PO SCH ×3 (00:02→12:24)
[2017-03-09 02:00] VITALS: BP 166/97; RESP 20
[2017-03-09 04:06] VITALS: BP 154/94; PULSE 70; RESP 18
[2017-03-09] MEDS: PANTOPRAZOLE (EC) 40 MG TAB PO SCH (06:09)
[2017-03-09 06:29] LABS: ABNORMAL IP MESSAGE 1; HEMATOCRIT 36.9 % (37.0-47.0); HEMOGLOBIN 12.8 g/dl (12.0-16.0); MEAN CORPUSCULAR HEMOGLOBIN 30.1 pg (29.0-33.0); MEAN CORPUSCULAR HGB CONC 34.7 g/dl (32.0-37.0); MEAN CORPUSCULAR VOLUME 86.8 fl (82.0-101.0); MEAN PLATELET VOLUME 10.4 fl (7.4-10.4); PLATELET COUNT 371 10^3/UL (140-415); RED BLOOD COUNT 4.25 10^6/ul (4.20-5.40); RED CELL DISTRIBUTION WIDTH 13.4 % (11.5-14.5); WHITE BLOOD COUNT 21.8 10^3/ul (4.8-10.8)
[2017-03-09 06:51] LABS: POSITIVE DIFF @See below
[2017-03-09 07:02] LABS: CALCIUM 9.4 mg/dl (8.4-10.2); CREATININE 1.09 mg/dl (0.44-1.00); POTASSIUM 3.5 mmol/L (3.5-5.1)
[2017-03-09 07:48] VITALS: BP 145/90; RESP 16
[2017-03-09] MEDS: CEFEPIME 1GM/50 ML (PMX) 50 ML IVPB SCH (08:54)
[2017-03-09] MEDS: HYDROCHLOROTHIAZIDE 25 MG TAB PO SCH (08:55)
[2017-03-09] MEDS: AMLODIPINE 5 MG TAB PO SCH (08:55)
[2017-03-09] MEDS: HEPARIN 5,000 UNIT/0.5 ML VIAL SC SCH ×2 (08:55→21:43)
[2017-03-09 11:33] LABS: BASOPHILS % (M) 1 % (0-2); EOSINOPHILS % (M) 1 % (0-7); METAMYELOCYTES %M 3 % (0-0); MONOCYTES % (M) 8 % (0-11); MYELOCYTES % (M) 2 % (0-0); PLATELET ESTIMATE NORMAL; POIKILOCYTOSIS 1+ (0-0); POLYCHROMASIA 3+ (0-0)
[2017-03-09] MEDS ORDERED: AMLODIPINE 5 MG TAB PO SCH (12:00)
[2017-03-09] MEDS: VANCOMYCIN 750 MG in DEXTROSE 5% 150 ML IVPB SCH (12:24)
[2017-03-09 14:06] VITALS: BP 119/82; RESP 18
--- NOTE | 2017-03-09 14:08 | PN ---
Date/Time of Note Date/Time of Note DATE: 03/09/17 TIME: 14:06 Assessment/Plan VTE Prophylaxis VTE Prophylaxis Intervention: ambulation, SCD's Lines/Catheters IV Catheter Type (from Nrsg): Peripheral IV Urinary Cath still in place: No Assessment/Plan Chief Complaint/Hosp Course subjective 12.9 no acute complaints, hand pain improving objective Physical exam General: Patient is laying in bed and answers questions appropriately Mentation: Patient is alert and oriented 4, Head: Normocephalic atraumatic Eyes: EOMI, pupils reactive to light Neck: Supple, nontender, midline Respiratory: Clear to auscultation bilaterally Cardiovascular: regular rate, no obvious murmurs Gastrointestinal: non-tender to palpation, bowel sounds heard. Neurological: Moves all extremities spontaneously Skin: R hand erythematous Assessment/Plan 1. Sepsis, as evidenced by leukocytosis and tachycardia, secondary to right hand/forearm cellulitis Patient is improving. White count is trending down. She is however not ready for discharge at this time, will switch to IV doxycycline today for easier transition to oral medication. 2. Presumed SHAWANDA Creatinine levels have improved. Continue IV fluids. renal us noted, 3. Hypertension: Still with suboptimal control, adjust antihypertensives. 4. History of migraine headache - Will provide pain medication as needed Further interventions per clinical care. Appreciate all consults. Problems: Exam/Review of Systems Vital Signs Vitals Vital Signs Date Time Temp Pulse Resp B/P Pulse Ox O2 Delivery O2 Flow Rate FiO2 03/09/17 07:48 97.6 56 16 145/90 96 03/09/17 04:06 Room Air Intake and Output 03/08/17 03/08/17 03/09/17 15:00 23:00 07:00 Intake Total 200 ml 620 ml 600 ml Balance 200 ml 620 ml 600 ml Results Result Diagram: 03/09/17 0604 03/09/17 0604 Results 24 hrs Laboratory Tests Test 03/08/17 21:00 03/09/17 06:04 Vancomycin Level Trough 13.1 White Blood Count 21.8 H Red Blood Count 4.25 Hemoglobin 12.8 Hematocrit 36.9 L Mean Corpuscular Volume 86.8 Mean Corpuscular Hemoglobin 30.1 Mean Corpuscular Hemoglobin Concent 34.7 Red Cell Distribution Width 13.4 Platelet Count 371 Mean Platelet Volume 10.4 Neutrophils % Segmented Neutrophils % (Manual) 71 Band Neutrophils % (Manual) 6 H Lymphocytes % Lymphocytes % (Manual) 8 L Monocytes % Monocytes % (Manual) 8 Eosinophils % Eosinophils % (Manual) 1 Basophils % Basophils % (Manual) 1 Metamyelocytes % (manual) 3 H Myelocytes % (Manual) 2 H Nucleated Red Blood Cells % 0.0 Neutrophils # Neutrophils # (Manual) 15.8 H Band Neutrophils # 1.3 H Absolute Lymphocytes (Manual) 1.7 Lymphocytes # Monocytes # Absolute Monocytes (Manual) 1.7 H Eosinophils # Basophils # Basophils # (Manual) 0.2 H Metamyelocytes # 0.6 H Myelocytes # 0.4 H Nucleated Red Blood Cells # Platelet Estimate NORMAL Polychromasia 3+ Poikilocytosis 1+ Sodium Level 141 Potassium Level 3.5 Chloride Level 103 Carbon Dioxide Level 27 Anion Gap 15 Blood Urea Nitrogen 22 H Creatinine 1.09 H Glucose Level 97 Calcium Level 9.4 Medications Medications Current Medications Cefepime HCl (Maxipime 1gm/50 ml (Pmx)) 50 ml @ 100 mls/hr Q12 IVPB Last administered on 03/09/17 08:54; Admin Dose 100 MLS/HR; Start 03/07/17 at 09:00 Morphine Sulfate (morphine) 2 mg Q4H PRN IV pain; Start 03/07/17 at 01:30 Ondansetron HCl (Zofran Inj) 4 mg Q6H PRN IV NAUSEA AND/OR VOMITING; Start 03/07/17 at 01:30 Heparin Sodium (Porcine) 5000 unit 5,000 unit BID SC Last administered on 21:58; Admin Dose 5,000 UNIT; Start 03/07/17 at 09:00 Vancomycin HCl/ Dextrose/Water (Vancocin/D5W) 150 ml @ 75 mls/hr Q12H IVPB Last administered on 03/09/17 12:24; Admin Dose 75 MLS/HR; Start 03/07/17 at 22 :30 Clonidine (Catapres) 0.1 mg Q6H PRN PO for sbp >160 Last administered on 02:39; Admin Dose 0.1 MG; Start 03/07/17 at 22:00 Hydralazine HCl (Apresoline) 10 mg Q4H PRN IV sbp >160 Last administered on 23:50; Admin Dose 10 MG; Start 03/07/17 at 22:00 Hydrochlorothiazide (Hydrochlorothiazide) 25 mg DAILY PO Last administered on 03/09/17 08:55; Admin Dose 25 MG; Start 03/08/17 at 09:00 Ibuprofen (Motrin) 600 mg Q6 PO Last administered on 03/09/17 12:24; Admin Dose 600 MG; Start 03/08/17 at 00:00 Pantoprazole (Protonix Tab) 40 mg DAILY@06 PO Last administered on 03/09/17 06 :09; Admin Dose 40 MG; Start 03/08/17 at 06:00 Amlodipine Besylate (Norvasc) 5 mg DAILY PO Last administered on 03/09/17 08: 55; Admin Dose 5 MG; Start 03/08/17 at 11:00 Hydrocortisone (Hydrocortisone 1% Cr) 1 applic BID PRN TOP itching Last administered on 03/09/17 09:14; Admin Dose 1 APPLIC; Start 03/08/17 at 10:30 Amlodipine Besylate (Norvasc) 5 mg DAILY PO Last administered on 03/09/17 12: 24; Admin Dose 5 MG; Start 03/09/17 at 12:00 LEE ANN THOMAS Mar 09, 2017 14:08
[2017-03-09] MEDS ORDERED: SOD CHLORIDE 0.45% 1,000 ML IV ONE (14:30)
[2017-03-09 19:54] VITALS: BP 153/94; RESP 18
[2017-03-09] MEDS: DOXYCYCLINE 100 MG in SOD CHLORIDE 0.9% 250 ML IVPB SCH (21:38)
[2017-03-10 02:16] VITALS: BP 151/101; RESP 18
[2017-03-10] MEDS: PANTOPRAZOLE (EC) 40 MG TAB PO SCH (05:50)
[2017-03-10 05:59] LABS: ABNORMAL IP MESSAGE 1; BASOPHILS % 0.2 % (0.0-2.0); EOSINOPHILS # 0.1 10^3/ul (0.0-0.5); EOSINOPHILS % 0.8 % (0.0-7.0); HEMATOCRIT 38.3 % (37.0-47.0); LYMPHOCYTES # 3.9 10^3/ul (0.8-2.9); LYMPHOCYTES % 22.6 % (15.0-51.0); MEAN CORPUSCULAR HEMOGLOBIN 29.8 pg (29.0-33.0); MEAN CORPUSCULAR HGB CONC 33.9 g/dl (32.0-37.0); MEAN CORPUSCULAR VOLUME 87.8 fl (82.0-101.0); MEAN PLATELET VOLUME 10.9 fl (7.4-10.4); MONOCYTE # 0.7 10^3/ul (0.3-0.9); MONOCYTES % 4.2 % (0.0-11.0); NEUTROPHIL # 8.8 10^3/ul (1.6-7.5); NEUTROPHILS % 50.9 % (39.0-77.0); NUCLEATED RED BLOOD CELLS% 0.1 /100WBC (0.0-0.0); PLATELET COUNT 384 10^3/UL (140-415); RED BLOOD COUNT 4.36 10^6/ul (4.20-5.40); RED CELL DISTRIBUTION WIDTH 13.5 % (11.5-14.5); WHITE BLOOD COUNT 17.2 10^3/ul (4.8-10.8)
[2017-03-10 06:26] LABS: POSITIVE DIFF @See below
[2017-03-10 06:41] LABS: CALCIUM 8.8 mg/dl (8.4-10.2); CREATININE 0.96 mg/dl (0.44-1.00); POTASSIUM 3.8 mmol/L (3.5-5.1)
[2017-03-10 06:51] LABS: MAGNESIUM 1.3 mg/dl (1.7-2.5); PHOSPHORUS 4.7 mg/dl (2.5-4.9)
[2017-03-10 08:17] VITALS: BP 149/106; RESP 17
[2017-03-10] MEDS: DOXYCYCLINE 100 MG in SOD CHLORIDE 0.9% 250 ML IVPB SCH (09:00)
[2017-03-10] MEDS ORDERED: AMLODIPINE 5 MG TAB PO SCH (09:00)
[2017-03-10] MEDS: HEPARIN 5,000 UNIT/0.5 ML VIAL SC SCH (09:34)
[2017-03-10] MEDS: HYDROCHLOROTHIAZIDE 25 MG TAB PO SCH (09:35)
[2017-03-10] MEDS ORDERED: LISINOPRIL 5 MG TAB PO SCH (10:00)
[2017-03-10] MEDS ORDERED: OMEP20CA16 PO (10:01)
[2017-03-10] MEDS ORDERED: DOXY-220 PO (10:01)
[2017-03-10] MEDS ORDERED: AMLO-147 PO (10:01)
[2017-03-10] MEDS ORDERED: LISI-313 PO (10:01)
[2017-03-10] MEDS ORDERED: HYDR25TA6 PO (10:01)
--- NOTE | 2017-03-10 10:03 | PDOCDIS ---
Discharge Instructions CONDITION Patient Condition: Stable HOME CARE INSTRUCTIONS: Special Diet: Regular FOLLOW UP/APPOINTMENTS Follow-up Plan 1. Please take all medications as directed 2. Finish full course of antibiotics. Please follow up with primary doctor as soon as possible 3. Please note new blood pressure medications 4. all new prescriptions will be provided, stop taking previous home medications for blood pressure LEE ANN THOMAS Mar 10, 2017 10:03
[2017-03-10] MEDS ORDERED: MAGNESIUM SULFATE 2 GM/50 ML 50 ML IVPB ONE (10:30)
--- NOTE | 2017-03-10 12:24 | DS ---
Date/Time of Note Date/Time of Note DATE: 03/10/17 TIME: 12:24 Discharge Summary Admission/Discharge Info Admit Date/Time Mar 08, 2017 at 11:36 Discharge Date/Time Patient Condition: Stable Hospital Course Patient is a 46-year-old female with past medical history significant for mood disorder, and recent failed outpatient therapy of right hand cellulitis , also has a history of hypertension. Patient was admitted for right hand cellulitis which failed outpatient therapy of clindamycin, patient was placed on broad-spectrum antibiotics and patient's white count improved significantly over the course of a few days. Patient was afebrile with no acute symptoms with a dramatically improved clinical findings of her hand and patient wishes to go home. Patient tolerated IV broad-spectrum antibiotics which was eventually transitioned to IV doxycycline and she had no issues. Patient will be discharged to finish up on doxycycline for a total of 10 days including hospitalization days and with new blood pressure medications as her medications of clonidine are not ideal. Patient has no insurance and it was explained to her at bedside through official correspondence dictator how important it is to follow with her primary care provider and to treat her blood pressure and to take all medications. Patient assured us that she will be able to fill generic doxycycline out of her own pocket, it was offered for her to wait until the hospital could accommodate her antibiotics, however patient refused since it would take likely more than 1 day. Patient will be discharged to follow-up with her primary care provider to take all medications as directed Home Meds Active Scripts Lisinopril* (Lisinopril*) 5 Mg Tablet, 5 MG PO DAILY for 30 Days, #30 TAB 1 Refill Prov:LEE ANN THOMAS 03/10/17 Doxycycline Monohydrate* (Doxycycline Monohydrate*) 100 Mg Tablet, 100 MG PO BID , #14 TAB Prov:LEE ANN THOMAS 03/10/17 Amlodipine Besylate* (Amlodipine Besylate*) 10 Mg Tablet, 10 MG PO DAILY, #30 TAB 1 Refill Prov:LEE ANN THOMAS 03/10/17 Hydrochlorothiazide* (Hydrochlorothiazide*) 25 Mg Tab, 25 MG PO DAILY for 30 Days, #30 TAB 1 Refill Prov:LEE ANN THOMAS 03/10/17 Omeprazole* (Omeprazole*) 20 Mg Capsule.dr, 20 MG PO DAILY for 30 Days, #30 CAP 1 Refill Prov:LEE ANN THOMAS 03/10/17 Discontinued Reported Medications Prednisone* (Prednisone*) 20 Mg Tab, 20 MG PO BID, TAB 03/07/17 Clonidine Hcl* (Clonidine Hcl*) 0.1 Mg Tab, 0.1 MG PO Q8 for ELEVATED BLOOD PRESSURE, TAB for sbp greater than 160 or DBP greater than 90 03/07/17 Discontinued Scripts Ibuprofen* (Motrin*) 600 Mg Tab, 600 MG PO Q6, #30 TAB Prov:GARTH ABBOTT MD 03/04/17 Clindamycin Hcl* (Clindamycin Hcl*) 300 Mg Capsule, 300 MG PO QID for 10 Days, CAP Prov:GARTH ABBOTT MD 03/04/17 Follow-up Plan 1. Please take all medications as directed 2. Finish full course of antibiotics. Please follow up with primary doctor as soon as possible 3. Please note new blood pressure medications 4. all new prescriptions will be provided, stop taking previous home medications for blood pressure Primary Care Provider Care Physician No Primary Time spent on discharge: > 30 minutes Pending Labs Laboratory Tests Test 03/10/17 04:33 White Blood Count 17.210^3/ul (4.8-10.8) Red Blood Count 4.3610^6/ul (4.20-5.40) Hemoglobin 13.0g/dl (12.0-16.0) Hematocrit 38.3% (37.0-47.0) Mean Corpuscular Volume 87.8fl (82.0-101.0) Mean Corpuscular Hemoglobin 29.8pg (29.0-33.0) Mean Corpuscular Hemoglobin Concent 33.9g/dl (32.0-37.0) Red Cell Distribution Width 13.5% (11.5-14.5) Platelet Count 89323^3/UL (140-415) Mean Platelet Volume 10.9fl (7.4-10.4) Neutrophils % 50.9% (39.0-77.0) Lymphocytes % 22.6% (15.0-51.0) Monocytes % 4.2% (0.0-11.0) Eosinophils % 0.8% (0.0-7.0) Basophils % 0.2% (0.0-2.0) Nucleated Red Blood Cells % 0.1/100WBC (0.0-0.0) Neutrophils # 8.810^3/ul (1.6-7.5) Lymphocytes # 3.910^3/ul (0.8-2.9) Monocytes # 0.710^3/ul (0.3-0.9) Eosinophils # 0.110^3/ul (0.0-0.5) Basophils # 0.010^3/ul (0.0-0.1) Nucleated Red Blood Cells # 0.010^3/ul (0.0-0.0) Sodium Level 138mmol/L (135-144) Potassium Level 3.8mmol/L (3.5-5.1) Chloride Level 103mmol/L (97-110) Carbon Dioxide Level 24mmol/L (21-31) Anion Gap 15 (8-16) Blood Urea Nitrogen 21mg/dl (7-20) Creatinine 0.96mg/dl (0.44-1.00) Glucose Level 80mg/dl (70-220) Calcium Level 8.8mg/dl (8.4-10.2) Phosphorus Level 4.7mg/dl (2.5-4.9) Magnesium Level 1.3mg/dl (1.7-2.5) LEE ANN THOMAS Mar 10, 2017 12:24
[2017-03-10 15:29] VITALS: BP 145/90; RESP 17
== END 2017-03-10 15:33 | disposition home or self-care (01) | DRG 872 ==
LOC: FTE 18:16 → PP2 21:51 → OBSVTOIN 03-08 11:36
PROVIDERS: ADMIT Internal Medicine; ATTEND Internal Medicine
DX: A41.9 Sepsis, unspecified organism (principal); N17.9 Acute kidney failure, unspecified; L03.113 Cellulitis of right upper limb; I12.9 Hypertensive chronic kidney disease with stage 1 through stage 4 chronic kidney disease, or unspecified chronic kidney disease; N18.9 Chronic kidney disease, unspecified; G43.909 Migraine, unspecified, not intractable, without status migrainosus; E87.6 Hypokalemia
CPT/HCPCS: 36415; 80048; 80053; 80202; 81001; 83036; 83605; 83735; 84100; 84443; 85025; 87040; 87086; 93971; 96374; 96375; G0378; J0360; J0692; J1644; J2270; J2543; J3370; J3475; J3480; J7030; J7050; J7512

== ENCOUNTER 2018-02-22 21:35 | Emergency (ER) | END 2018-02-23 01:29 | disposition home or self-care (01) ==